=== PATIENT | female | born 1960 | race Caucasian/White ===

== ENCOUNTER 2018-09-05 10:30 | Observation (INO) | payer BC ==
[2018-09-05] MEDS ORDERED: LACTATED RINGERS 1,000 ML IVS ONE (10:42)
--- NOTE | 2018-09-05 10:42 | ED.PDOC ---
History of Present Illness - General Chief Complaint: Abdominal Pain Stated Complaint: abdominal discomfort/distention Time Seen by Provider: 09/05/18 10:41 Information Source: patient Exam Limitations: no limitations - History of Present Illness Initial Comments: Chyna Alexander 57 y/o female came to ER with on and off abdominal discomfort and noted abdomen getting more distended for the last 2 weeks felt nauseated but no vomiting able to eat small amounts and had liquid stools.Seen initially 02 Sep 2018 at [facility] FPA done showing constipation and was advised to take laxatives.Stated not any better.No blood in stool,no hematemesis.had her appendix taken out in 2006.DENIES ABDOMINAL PAIN.Stated quit taking her Metformin for her dm2 since increasing her dose made symptoms worse. Abdominal Pain Onset Location: other - NO PAIN BUT DISCOMFORT Pain Radiation: no radiation Quality: waxing/waning Timing/Duration: days - 14 Improving Factors: nothing Worsening Factors: nothing Associated Symptoms: denies symptoms, other - see hpi Review of Systems - Review of Systems Constitutional: States: no symptoms reported EENTM: States: no symptoms reported Respiratory: States: no symptoms reported Cardiology: States: no symptoms reported Gastrointestinal/Abdominal: States: see HPI, other - distention abdomen Genitourinary: States: no symptoms reported Musculoskeletal: States: no symptoms reported Skin: States: no symptoms reported Neurological: States: no symptoms reported All other Systems: Reviewed and Negative, No Change from Baseline Past Medical History (General) - Patient Medical History Hx Hypertension: Yes Hx Diabetes: Yes Surgical History: appendectomy - Social History Hx Alcohol Use: No Hx Substance Use: No Hx Depression: No Feels Threatened In Home Enviroment: No Hx Physical Abuse: No Hx Emotional Abuse: No Hx Suspected Abuse: No - Female History Patient is a Female of Child Bearing Age (10 -59 yrs old): Yes Patient : No Family Medical History - Family History Mother Living Status: Still Living Hx Family Hypertension: Yes Hx Family Diabetes: Yes Hx Family Cancer: Yes - dad-liver Physical Exam - Physical Exam General Appearance: Alert, Comfortable, No apparent distress Eyes, Ears, Nose, Throat Exam: normal ENT inspection Neck: non-tender, supple, normal inspection Respiratory: chest non-tender, lungs clear, normal breath sounds, no respiratory distress Cardiovascular/Chest: normal peripheral pulses, regular rate, rhythm, no murmur Peripheral Pulses: No deficit Gastrointestinal/Abdominal: soft, no organomegaly, distended, tenderness - all over no peritoneal signs Rectal Exam: normal rectal tone, heme negative stool, other - no rectal mass Extremity: no pedal edema, no calf tenderness Neurologic: alert, oriented x 3 Skin Exam: warm/dry, cyanosis Progress - Progress Progress: 09/05/18 11:42 Vital Signs - 8 hr 09/05/18 10:38 Temperature 100.4 F H Pulse Rate [ 127 H Left Radial] Respiratory 20 Rate Blood Pressure 144/92 [Left Arm] O2 Sat by Pulse 94 L Oximetry - Results/Orders Results/Orders: 09/05/18 10:42 IV Care:Saline Lock per Protoc QSHIFT 09/05/18 11:40 Hold Metformin x 48Hrs [id number] 09/05/18 12:39 Pelvis Transvaginal [US] Stat Laboratory Results - last 24 hr 09/05/18 09/05/18 09/05/18 10:45 10:54 11:36 WBC 10.4 RBC 5.14 Hgb 12.9 Hct 40.6 MCV 79.0 L MCH 25.2 L MCHC 31.8 L RDW 14.0 Plt Count 723 H MPV 6.7 L Absolute Neuts (auto) 8.30 H Absolute Lymphs (auto) 1.20 Absolute Monos (auto) 0.60 Absolute Eos (auto) 0.20 Absolute Basos (auto) 0.10 Neutrophils % 79.9 H Lymphocytes % 11.3 L Monocytes % 6.0 Eosinophils % 1.5 Basophils % 1.3 PT 9.6 INR 0.96 PTT (SP) 27.2 Sodium 137 Potassium 4.2 Chloride 99 L Carbon Dioxide 24 Anion Gap 18.2 H BUN 11 Creatinine 0.77 BUN/Creatinine Ratio 14.3 Random Glucose 106 H Serum Osmolality 273.6 L Calcium 9.0 Magnesium 2.0 Total Bilirubin 0.5 Direct Bilirubin < 0.1 Indirect Bilirubin 0.4 AST 18 ALT 25 Alkaline Phosphatase 57 Creatine Kinase 52 CK-MB (CK-2) 0.9 CK-MB (CK-2) % Not Reportable Troponin I < 0.02 Serum Total Protein 8.1 Albumin 3.7 Lipase 27 TSH 3.19 Urine Color Urine Appearance Urine pH Ur Specific Evant Urine Protein Urine Glucose (UA) Urine Ketones Urine Blood Urine Nitrite Urine Bilirubin Urine Urobilinogen Ur Leukocyte Esterase Urine RBC Urine WBC Ur Epithelial Cells Urine Bacteria Urine Mucus Stool Occult Blood Negative 09/05/18 12:16 WBC RBC Hgb Hct MCV MCH MCHC RDW Plt Count MPV Absolute Neuts (auto) Absolute Lymphs (auto) Absolute Monos (auto) Absolute Eos (auto) Absolute Basos (auto) Neutrophils % Lymphocytes % Monocytes % Eosinophils % Basophils % PT INR PTT (SP) Sodium Potassium Chloride Carbon Dioxide Anion Gap BUN Creatinine BUN/Creatinine Ratio Random Glucose Serum Osmolality Calcium Magnesium Total Bilirubin Direct Bilirubin Indirect Bilirubin AST ALT Alkaline Phosphatase Creatine Kinase CK-MB (CK-2) CK-MB (CK-2) % Troponin I Serum Total Protein Albumin Lipase TSH Urine Color Yellow Urine Appearance Clear Urine pH 6.0 Ur Specific Evant 1.015 Urine Protein Trace Urine Glucose (UA) Negative Urine Ketones 40 H Urine Blood Trace-intact H Urine Nitrite Negative Urine Bilirubin Small H Urine Urobilinogen 0.2 Ur Leukocyte Esterase Negative Urine RBC 0-1 Urine WBC 0-1 Ur Epithelial Cells 1-3 Urine Bacteria Rare Urine Mucus Moderate Stool Occult Blood Discuss all test results with patient and also called up Dr. Goodson for the test results came to talk to patient for admit -OBS - EKG/XRAY/CT Xray Comments: TVUS-left ovarian mass CT Ordered: Yes - abd/p-peritoneal carcinomatosis Departure - Departure Clinical Impression: Abdominal distention, non-gaseous, Peritoneal carcinomatosis, Ovarian mass, left Ascites Qualifiers: Ascites type: other type Qualified Code(s): R18.8 - Other ascites Time of Disposition: 14:43 Disposition: Admit Patient Condition: Fair Departure Forms: Patient Portal Self Enrollment Referrals: Mc Goodson III, MD [Primary Care Provider] - 1-2 Weeks Home Medications: Ambulatory Orders Losartan Potassium [Cozaar] 100 mg PO DAILY 09/05/18 Metformin HCl [Metformin Hydrochloride E] 500 mg PO BID 09/05/18 Montelukast [Singulair] 10 mg PO DAILY 09/05/18 Pantoprazole Sodium 40 mg PO DAILY 09/05/18 Decision To Admit - Decistion To Admit Decision to Admit Reason: Admit from ER Decision to Admit Date: 09/05/18 - D/W Betty stanton -ANP/Hospitalist for admit Decision to Admit Time: 14:40
[2018-09-05] MEDS ORDERED: MORPHINE SULFATE INJ 10 MG/ML VIAL IV ONE (10:43)
[2018-09-05] MEDS ORDERED: PROCHLORPERAZINE INJ 10 MG/2 ML VIAL IV ONE (10:43)
--- NOTE | 2018-09-05 12:38 | RAD ---
Study: Single Frontal Radiograph of the Chest. Indication:pain Comparison: None. Findings: Heart size normal. Patchy bibasilar atelectasis with a tiny left pleural effusion. No pneumothorax. No acute osseous abnormality. Electronically signed by: Ernst Sandy MD 09/05/2018 12:36 PM CDT
--- NOTE | 2018-09-05 12:39 | CT ---
EXAM DESCRIPTION: Abdomen/Pelvis w/Contrast CLINICAL HISTORY: abdominal discomfort/distention COMPARISON: None Available TECHNIQUE: CT of the abdomen and Pelvis was performed with IV contrast. This exam was performed according to our departmental dose-optimization program, which includes automated exposure control, adjustment of the mA and/or kV according to patient size and/or use of iterative reconstruction technique. FINDINGS: Partially visualized small left-sided pleural effusion with overlying atelectasis in the left lung base. The dome of the liver and most superior portion of the spleen are excluded from this exam. There is a moderate amount of ascites with several nodular soft tissue density lesions in the omentum highly suspicious for peritoneal carcinomatosis. No adenopathy or pneumoperitoneum. No abdominal aortic aneurysm. Tiny round low-density lesion superiorly in the right hepatic lobe, too small to characterize on this exam. Visualized portions of the liver and spleen are otherwise unremarkable. The pancreas, adrenals and kidneys are unremarkable except for a punctate nonobstructing right renal calculus. No dilated small bowel loops. No bladder calcification. The uterus is unremarkable. The ovaries are difficult to identify due to adjacent bowel loops, but fullness of the left adnexal region is noted. There is a round 3.7 cm cyst in the cul-de-sac which is of uncertain etiology but may be of ovarian origin. No colonic wall thickening or pericolonic inflammation. No suspicious bone lesion. IMPRESSION: Moderate to large amount of ascites with several soft tissue density omental lesions all highly suspicious for peritoneal carcinomatosis. Fullness of the left adnexal region without discrete ovarian mass, but metastatic ovarian neoplasm is a primary consideration. Pelvic ultrasound should be considered for further evaluation of the ovaries. Small left-sided pleural effusion with overlying atelectasis in the left lung base. Slightly limited visualization of the liver and spleen as detailed above. Findings were reported by telephone to Dr. Pérez by me at the time of this report. Electronically signed by: Amauri Baldwin MD 09/05/2018 12:37 PM CDT
[2018-09-05] MEDS ORDERED: ALPRAZolam 0.5 MG TAB ONE (13:10)
[2018-09-05] MEDS ORDERED: ALPRAZolam 0.25 MG TAB PO ONE (13:15)
--- NOTE | 2018-09-05 14:21 | US ---
EXAM DESCRIPTION: Pelvis Transvaginal CLINICAL HISTORY: abdominal distention COMPARISON: CT performed earlier same day TECHNIQUE: Transabdominal and transvaginal pelvic US was performed. FINDINGS: Uterus: The uterus is anteverted and measures 7.2 cm in length. There is a small amount of blood or other complex fluid in the endometrium. Two intramural uterine fibroids measuring up to 2.9 cm diameter. Cervix: Unremarkable. Right Ovary/Right Adnexa: The right ovary measures 1.3 x 1.3 x 1.4 cm and is otherwise unremarkable. No right adnexal mass or fluid collection.. Left Ovary/Left Adnexa: The left ovary measures 3.7 x 3.1 x 3.8 cm and contains a 3.4 cm cyst with septations measuring up to three or 4 mm diameter and a small amount of peripheral solid component. Blood flow is present to the left ovary.. Free Fluid: Moderate to large amount of free fluid in the pelvis. IMPRESSION: 3.4 cm slightly complex left ovarian cyst including small amount of peripheral solid component and internal septations measuring up to 3 mm diameter. Considering findings from today's CT, this should be considered neoplasm until proven otherwise. Gynecological consultation is recommended. Intramural uterine fibroids measuring up to 2.9 cm diameter. Small amount of blood or other complex fluid in the endometrium. Electronically signed by: Amauri Baldwin MD 09/05/2018 2:19 PM CDT
--- NOTE | 2018-09-05 14:56 | HP ---
SUPERVISING PHYSICIAN: Dariel Denise M.D. CHIEF COMPLAINT: Abdominal pain. HISTORY OF PRESENT ILLNESS: This is a 57 year-old female patient who lives in [place]. She actually was seeing Dr. Goodson. She just established care in his office today. When she went to the office she was complaining of abdominal pain that had been going on for 2 to 3 weeks. She also had some acid reflux and shortness of breath as well as some swelling in the abdominal area. She had an abdominal x-ray at [facility] and then was sent to the hospital for a CT of the abdomen. The CT of the abdomen showed moderate to large amount of ascites and several soft tissue density omental lesions all highly suspicious for peritoneal carcinomatosis, fullness of the left adnexal region without discrete ovarian mass, but metastatic ovarian neoplasm is the primary consideration. Pelvic ultrasound should be considered for further evaluation. There is also a small left sided pleural effusion with overlying atelectasis in the left lung base. Slightly limited visualization of the liver and spleen as detailed above. Dr. Briggs was called to evaluate the patient. A transvaginal ultrasound was also ordered. The transvaginal ultrasound showed a 3.4 cm slightly complex left ovarian cyst including small amount of peripheral solid component and internal septations measuring up to 3 mm in diameter. Considering findings from today's CT, this should be considered neoplasm until proven otherwise. Gynecological consultation is recommended. Intramural uterine fibroids measuring up to 2.9 cm in diameter. Small amount of blood or other complex fluid in the endometrium. Lab was done. WBCs were 10.4 with hemoglobin 12.9, hematocrit 40.4, platelets 723. Electrolytes were basically within normal limits with the exception of her chloride was 99 and serum osmolality was 273.6. TSH was 3.19. Urinalysis showed 40 of urine ketones, trace of intact urine blood and small amount of urine bilirubin. Chest x-ray was done that showed the heart size is normal with patchy bibasilar atelectasis with tiny left pleural effusion. No pneumothorax and no acute osseous abnormality. I was called for admission to the hospital. Dr. Briggs has been consulted and a paracentesis was done at the bedside. The patient had about 5,500 mL of straw-colored clear fluid that was drained. Appropriate testing was sent. I spoke with Dr. Goodson to tell him the results of the paracentesis and he ordered additional testing for send out. The patient will be placed in observation overnight to have close followup with Dr. Goodson, her primary care provider. PAST MEDICAL HISTORY: 1. Diabetes mellitus presently on no medications. She had previously been on Metformin. 2. Hypertension on medications. 3. Seasonal allergies. 4. Mild seasonal asthma. PAST SURGICAL HISTORY: 1. Appendectomy. OUTPATIENT MEDICATIONS: 1. Fluticasone nasal spray. 2. Loratadine. 3. Losartan. 4. Qvar. 5. Ventolin. ALLERGIES: NO KNOWN DRUG ALLERGIES. SOCIAL HISTORY: She lives in [place]. She is . She has 2 children. She denies any tobacco, ETOH or illicit drug use. REVIEW OF SYSTEMS: Positive for weight increase. Negative for fever or chills. RESPIRATORY: Positive for mild shortness of breath. Negative for coughing or wheezing. CARDIAC: Negative for chest pain, palpitations or tachycardia. GASTROINTESTINAL: As per history of present illness. Denies constipation, nausea or vomiting. MUSCULOSKELETAL: Negative for arthralgias, myalgias. SKIN: Negative for lesions or rashes. GENITOURINARY: Negative for hematuria, dysuria or polyuria. NEUROLOGIC: Negative for seizures, headaches or dizziness. PHYSICAL EXAMINATION: VITAL SIGNS: Temperature 98.7, heart rate 101, blood pressure 126/78, respiratory rate 18, O2 sat 95% on room air. GENERAL: This is a 57 year-old obese female who is sitting up in her hospital bed. She is in no acute distress. HEENT: Normocephalic and atraumatic. Pupils are equal and reactive. Oropharynx is clear. NECK: Supple without mass. RESPIRATORY: Essentially clear to auscultation bilaterally. CARDIOVASCULAR: Regular rate and rhythm. GASTROINTESTINAL: Abdomen is soft, nondistended. She has some tenderness over that paracentesis site in the right upper quadrant. Bowel sounds are positive. SKIN: Warm and dry. NEUROLOGIC: She is awake, alert and oriented times three. Cranial nerves II- XII are grossly intact. LABORATORY: Labs and films are as per the History of Present Illness. ASSESSMENT: 1. Ascites with abdominal pain that has been going on for about 2 to 3 weeks. She also had an episode last fall that resolved on its own. 2. 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 3. Abdominal pain with diarrhea and acid reflux as well as mild shortness of breath most likely due to the ascites. 4. Diabetes mellitus type 2 presently on no medications. 5. Hypertension on Losartan. PLAN: The patient has been placed in observation. She had the paracentesis earlier to day and the fluid drained was about 5500 mL. The fluid has been sent for appropriate testing as well as appropriate serum testing as requested by Dr. Briggs and Dr. Goodson. I will repeat her labs in the morning. She will have some fluids overnight. She will be on a 2,000 calorie ADA diet with no added sodium. She will most likely be able to be discharged tomorrow with close followup with Dr. Goodson and Dr. Briggs. We will continue to monitor her overnight and follow as needed. #[id number] [facility]
[2018-09-05] MEDS ORDERED: SODIUM CHLORIDE 0.9% (FLUSH) 10 ML SYG IV PRN (16:41)
[2018-09-05] MEDS ORDERED: TEMAZEPAM 15 MG CAP PO PRN (16:41)
[2018-09-05] MEDS ORDERED: LEVALBUTEROL NEBS 1.25 MG/3 ML VIAL INH PRN (16:41)
[2018-09-05] MEDS ORDERED: ONDANSETRON INJ 4 MG/2 ML VIAL IV PRN (16:41)
[2018-09-05] MEDS ORDERED: GLUCAGON INJ 1 MG VIAL SUBCU PRN (16:46)
[2018-09-05] MEDS ORDERED: DEXTROSE 50% 25 GM/50 ML SYG IV PRN (16:46)
--- NOTE | 2018-09-05 16:51 | US ---
EXAM DESCRIPTION: Paracentesis CLINICAL HISTORY: ASCITES COMPARISON: None. TECHNIQUE: 2-D sonography FINDINGS: Sonography was used to localize ascites to perform paracentesis. An area in the right lower quadrant was selected. IMPRESSION: Sonography was used to localize ascites to perform paracentesis. Electronically signed by: Mc Ceja MD 09/05/2018 4:49 PM CDT
[2018-09-05] MEDS ORDERED: IV SET AND CAP CHANGE INJ INJ SCH (17:00)
[2018-09-05] MEDS: SODIUM CHLORIDE 0.45% 1000ML 1,000 ML IVS PRN (17:49)
[2018-09-05] MEDS: MORPHINE SULFATE INJ 10 MG/ML VIAL IV PRN (18:35)
--- NOTE | 2018-09-05 19:00 | CONS ---
DATE OF CONSULTATION: 09/05/18 REFERRING PHYSICIAN: Hospitalist Service HISTORY OF PRESENT ILLNESS: The patient is a 57 year-old female who is a new patient of Dr. Gallego, who presents with abdominal distention, some difficulty breathing, nausea without vomiting, indigestion, and she has had weight loss but noticed that she has likely gained a small amount of weight. She denied change in her bowel habits. She has had her appendix removed in the distant past. The pain does not radiate. It has been present for a couple of weeks. PAST MEDICAL HISTORY: 1. Significant as noted for the child . PAST SURGICAL HISTORY: 1. Appendectomy. CURRENT MEDICATIONS: 1. Glucagon. 2. Humalog. 3. Xopenex. 4. Cozaar. 5. Glucophage. 6. Singulair. 7. Zofran. 8. Protonix. 9. Restoril. At home, she takes: 1. Cozaar. 2. Pantoprazole. 3. Singulair. 4. Metformin. ALLERGIES: NO KNOWN DRUG ALLERGIES. FAMILY HISTORY: Positive for alcoholic cirrhosis. SOCIAL HISTORY: The patient is . 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 She is the mother of 2, grandmother of 5. States she has had no alcohol in 30 years. Does not smoke. There is no history of drug abuse. REVIEW OF SYSTEMS: No chest pain. No productive cough, although she is short of breath. No dysuria, but she does have polyuria, or at least frequency. PHYSICAL EXAMINATION: VITAL SIGNS: She is afebrile and normotensive. GENERAL: The patient is awake, alert and cooperative, and in no acute distress. HEENT: Reveals the sclera to be nonicteric. Mucous membranes are moist. NECK: Without adenopathy. BACK: Without CVA tenderness. CHEST: She has equal breath sounds bilaterally. ABDOMEN: Distended, tense. No significantly tender. There is a positive fluid wave without discrete mass. PELVIC AND RECTAL: Examinations are deferred. EXTREMITIES: Without clubbing, cyanosis or edema. LABORATORY: Potassium 4.2, creatinine 0.77. Liver functions are within normal limits. CK, CK-MB and troponin are all within normal limits. Lipase is was negative. TSH is normal. Hematology reveals white count 10,000, hemoglobin 12.9, 723,000 platelets, 79.9% neutrophils. Urinalysis shows 40+ ketones, small bilirubin. Essentially clear otherwise. CT scan of the abdomen reveals ascites. Possible mass in the omentum. Ultrasound of the pelvis transvaginal reveals normal right ovary. There is a mass in the left ovary with a 3.4 cm cyst with septations and solid component. There is moderate to large amount of free fluid in the pelvis. There were fibroid in the uterus but otherwise normal. There is fluid in the endometrium. IMPRESSION: 1. Ascites of uncertain etiology, likely malignant in nature. There are no signs of any lesion in the stomach or pancreas. There is the adnexal lesion on the left and this is likely the etiology. PLAN: Paracentesis both therapeutic and diagnostic reason, specifically cytology and chemistries. This will be done today with ultrasound guidance. #[id number] [facility]
[2018-09-05] MEDS: metFORMIN XR 500 MG TAB.ER.24 PO SCH (19:12)
[2018-09-05] MEDS ORDERED: PANTOPRAZOLE SODIUM TAB 40 MG PO ONE (19:12)
[2018-09-05] MEDS: INSULIN LISPRO 100 UNITS/ML PEN SUBCU SCH (21:01)
--- NOTE | 2018-09-05 21:04 | OP ---
DATE OF PROCEDURE: 09/05/18 PREOPERATIVE DIAGNOSIS: 1. Symptomatic ascites. POSTOPERATIVE DIAGNOSIS: 1. Symptomatic ascites. SURGICAL PROCEDURE: 1. Sonogram guided paracentesis. SURGEON: Kings Briggs M.D. PROCESS LINE OPERATOR: None. ANESTHESIA: Local infiltration of 1% Lidocaine. INDICATION FOR SURGERY: The patient is a 57 year-old female who presented with a tender distended abdomen. Workup has revealed ascites and possible omental disease. We plan to proceed today with a therapeutic and diagnostic paracentesis under local anesthesia with ultrasound guidance. The risks, benefits, and alternatives to the procedure have been discussed with the patient and her family, and we plan to proceed today. FINDINGS AT TIME OF PROCEDURE: Approximately 5500 mL of dark, straw-colored clear fluid was obtained without difficulty. DESCRIPTION OF PROCEDURE: The patient is placed in the supine position. The head of the bed is elevated. She is turned with the right side up and this is after both the right and left lower quadrant were examined with underlying. In moving the patient, this was the largest area of available fluid. So at this point the abdominal superior to the ultrasound probe was prepped with Chlorhexidine prep and then draped with a sterile drape. Local infiltration of anesthesia was obtained and then a 22 gauge spinal needle was introduced under direct underlying guidance into the peritoneum and fluid was obtained. So at this point a stab wound was made with a #11 blade and then a peritoneal catheter was introduced under direct vision. The needle was removed. The catheter was advanced. Fluid was obtained using both the three-way stopcock and the suction canisters. As noted, a total of 5500 mL were obtained. The catheter was removed. Hemostasis was obtained with pressure. A bandaid was placed over the wound. The patient tolerated the procedure well. There was no significant bleeding. The fluid is sent for appropriate study. #[id number] [facility]
[2018-09-05] MEDS ORDERED: diphenhydrAMINE HCL 25 MG CAP PO ONE (22:22)
[2018-09-06] MEDS: MORPHINE SULFATE INJ 10 MG/ML VIAL IV PRN ×2 (00:32→06:12)
[2018-09-06 02:12] VITALS: O2SAT 92
[2018-09-06] MEDS: SODIUM CHLORIDE 0.45% 1000ML 1,000 ML IVS PRN (06:08)
[2018-09-06 06:23] VITALS: BP 119/80; TEMP 98.2
[2018-09-06] MEDS ORDERED: PANTOPRAZOLE SODIUM TAB 40 MG PO SCH (07:00)
[2018-09-06] MEDS: INSULIN LISPRO 100 UNITS/ML PEN SUBCU SCH (07:36)
[2018-09-06] MEDS: metFORMIN XR 500 MG TAB.ER.24 PO SCH (07:38)
[2018-09-06] MEDS ORDERED: MONTELUKAST 10 MG TAB PO SCH (09:00)
[2018-09-06] MEDS ORDERED: LOSARTAN POTASSIUM 100 MG TAB PO SCH (09:00)
--- NOTE | 2018-09-06 09:05 | SSS ---
SUPERVISING PHYSICIAN: Maryam Denise M.D. DATE OF ADMISSION: 09/05/18 DATE OF DISCHARGE: 09/06/18 DISCHARGE DIAGNOSIS: 1. Ascites with abdominal pain that has been going on for about 2 to 3 weeks. She also had an episode last fall that resolved on its own. 2. 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 3. Abdominal pain with diarrhea and acid reflux as well as mild shortness of breath, most likely due to the ascites. 4. Diabetes mellitus, type 2, presently on no medications. 5. Hypertension on losartan. 6. Anxiety related to new diagnosis. HISTORY OF PRESENT ILLNESS: This is a 57-year-old female patient who lives in [place]. She actually was seeing Dr. Goodson. She just established care in his office today. When she went to the office she was complaining of abdominal pain that had been going on for 2 to 3 weeks. She also had some acid reflux and shortness of breath as well as some swelling in the abdominal area. She had an abdominal x-ray at [facility] and then was sent to the hospital for a CT of the abdomen. The CT of the abdomen showed moderate to large amount of ascites and several soft tissue density omental lesions all highly suspicious for peritoneal carcinomatosis, fullness of the left adnexal region without discrete ovarian mass, but metastatic ovarian neoplasm is the primary consideration. Pelvic ultrasound should be considered for further evaluation. There is also a small left sided pleural effusion with overlying atelectasis in the left lung base. Slightly limited visualization of the liver and spleen as detailed above. Dr. Briggs was called to evaluate the patient. A transvaginal ultrasound was also ordered. The transvaginal ultrasound showed a 3.4 cm slightly complex left ovarian cyst including small amount of peripheral solid component and internal septations measuring up to 3 mm in diameter. Considering findings from today's CT, this should be considered neoplasm until proven otherwise. Gynecological consultation is recommended. Intramural uterine fibroids measuring up to 2.9 cm in diameter. Small amount of blood or other complex fluid in the endometrium. Lab was done. WBCs were 10.4 with hemoglobin 12.9, hematocrit 40.4, platelets 723. Electrolytes were basically within normal limits with the exception of her chloride was 99 and serum osmolality was 273.6. TSH was 3.19. Urinalysis showed 40 of urine ketones, trace of intact urine blood and small amount of urine bilirubin. Chest x-ray was done that showed the heart size is normal with patchy bibasilar atelectasis with tiny left pleural effusion. No pneumothorax and no acute osseous abnormality. I was called for admission to the hospital. Dr. Briggs has been consulted and a paracentesis was done at the bedside. The patient had about 5,500 mL of straw-colored clear fluid that was drained. Appropriate testing was sent. I spoke with Dr. Goodson to tell him the results of the paracentesis and he ordered additional testing for send out. The patient will be placed in observation overnight to have close followup with Dr. Goodson, her primary care provider. PLAN: The patient has been placed in observation. She had the paracentesis earlier to day and the fluid drained was about 5500 mL. The fluid has been sent for appropriate testing as well as appropriate serum testing as requested by Dr. Briggs and Dr. Goodson. I will repeat her labs in the morning. She will have some fluids overnight. She will be on a 2,000 calorie ADA diet with no added sodium. She will most likely be able to be discharged tomorrow with close followup with Dr. Goodson and Dr. Briggs. We will continue to monitor her overnight and follow as needed. PAST MEDICAL HISTORY: 1. Diabetes mellitus presently on no medications. She had previously been on Metformin. 2. Hypertension on medications. 3. Seasonal allergies. 4. Mild seasonal asthma. PAST SURGICAL HISTORY: 1. Appendectomy. OUTPATIENT MEDICATIONS: 1. Fluticasone nasal spray. 2. Loratadine. 3. Losartan. 4. Qvar. 5. Ventolin. ALLERGIES: NO KNOWN DRUG ALLERGIES. SOCIAL HISTORY: She lives in [place]. She is . She has 2 children. She denies any tobacco, ETOH or illicit drug use. REVIEW OF SYSTEMS: Positive for weight increase. Negative for fever or chills. RESPIRATORY: Positive for mild shortness of breath. Negative for coughing or wheezing. CARDIAC: Negative for chest pain, palpitations or tachycardia. GASTROINTESTINAL: As per history of present illness. Denies constipation, nausea or vomiting. MUSCULOSKELETAL: Negative for arthralgias, myalgias. SKIN: Negative for lesions or rashes. GENITOURINARY: Negative for hematuria, dysuria or polyuria. NEUROLOGIC: Negative for seizures, headaches or dizziness. PHYSICAL EXAMINATION: VITAL SIGNS: Temperature 98.7, heart rate 101, blood pressure 126/78, respiratory rate 18, O2 sat 95% on room air. GENERAL: This is a 57 year-old obese female who is sitting up in her hospital bed. She is in no acute distress. HEENT: Normocephalic and atraumatic. Pupils are equal and reactive. Oropharynx is clear. NECK: Supple without mass. RESPIRATORY: Essentially clear to auscultation bilaterally. CARDIOVASCULAR: Regular rate and rhythm. GASTROINTESTINAL: Abdomen is soft, nondistended. She has some tenderness over that paracentesis site in the right upper quadrant. Bowel sounds are positive. SKIN: Warm and dry. NEUROLOGIC: She is awake, alert and oriented times three. Cranial nerves II- XII are grossly intact. LABORATORY: Labs and films are as per the History of Present Illness. DISCHARGE PLAN: The patient will be discharged home in stable condition. She is to resume her previous medications. She is no longer taking the Singulair or metformin, so I have discontinued those. I have also given her some Xanax due to her increased anxiety over this new possible diagnosis and I have also given her some tramadol for pain. She has a followup appointment tomorrow with Dr. Goodson at 1:30 PM. He has already spoken to Dr. Garry Olguin, oncologist from [facility], and he will see her in consultation next week with plans to see his gynecological oncologist, Dr. Yun. Appropriate lab has been drawn. Hopefully those will be resulted by the time she sees Dr. Olguin next week. She is to call Dr. Goodson' office or return to the hospital for any problems or complications. DISCHARGE MEDICATIONS: 1. Losartan. 2. Pantoprazole. 3. Alprazolam. 4. Tramadol. #[id number] [facility]
== END 2018-09-06 09:50 | disposition home or self-care (01) ==
LOC: ER 10:30 → MS 14:55
PROVIDERS: ADMIT Nurse Practitioner Acute Care; ATTEND Nurse Practitioner Acute Care
DX: R18.8 Other ascites (principal); N83.292 Other ovarian cyst, left side; R10.9 Unspecified abdominal pain; R19.7 Diarrhea, unspecified; K21.9 Gastro-esophageal reflux disease without esophagitis; R06.02 Shortness of breath; E11.9 Type 2 diabetes mellitus without complications; I10 Essential (primary) hypertension; F41.9 Anxiety disorder, unspecified; D25.1 Intramural leiomyoma of uterus; J90 Pleural effusion, not elsewhere classified; J98.11 Atelectasis; J45.909 Unspecified asthma, uncomplicated; Z79.4 Long term (current) use of insulin; Z79.51 Long term (current) use of inhaled steroids; Z79.899 Other long term (current) drug therapy; Z90.49 Acquired absence of other specified parts of digestive tract
CPT/HCPCS: 49083; 96361 ×2; 96374; 96375; 96376 ×2; Q0163; J2060 ×2; J2270 ×4; J0780; J7799 ×2; J7120; 82270; 80053 ×2; 89050; 84157; 82948 ×2; 82105; 36415 ×3; 82550; 80048; 82553; 85025 ×3; 85730; 85610; 84484; 81001; 80076; 86304; 82378 ×2; 82042; 87070; 82945; 87205; 83615 ×2; 83690; 83735; 84443; 36416 ×2; 71045; 74177; 76856; 76830; 76700; 94760 ×2; 99285; G0378

== ENCOUNTER → 2019-06-25 | Outpatient (CLI) | payer BC | DX: R92.8 Other abnormal and inconclusive findings on diagnostic imaging of breast (principal) ==

== ENCOUNTER → 2019-09-28 | Outpatient (CLI) | payer BC | LOC: GMAL 10:34 | PROVIDERS: ATTEND Family Medicine | DX: Z00.01 Encounter for general adult medical examination with abnormal findings (principal) ==

== ENCOUNTER → 2019-12-31 | Outpatient (CLI) | payer BC | LOC: GMAL 10:30 | PROVIDERS: ATTEND Family Medicine | DX: E53.8 Deficiency of other specified B group vitamins (principal); Z79.899 Other long term (current) drug therapy; E11.9 Type 2 diabetes mellitus without complications ==

== ENCOUNTER → 2020-04-14 | Outpatient (CLI) | payer BC | LOC: GMAL 12:55 | PROVIDERS: ATTEND Family Medicine | DX: R53.83 Other fatigue (principal); E11.9 Type 2 diabetes mellitus without complications; Z79.899 Other long term (current) drug therapy; E78.2 Mixed hyperlipidemia ==

== ENCOUNTER → 2020-06-02 | Outpatient (CLI) | payer BC | LOC: GMAL 16:17 | PROVIDERS: ATTEND Family Medicine | DX: R30.0 Dysuria (principal); Z79.899 Other long term (current) drug therapy ==